=== PATIENT | female | born 1995 | race Caucasian/White ===

== ENCOUNTER 2022-05-17 01:50 | Emergency (ER) | payer BC, OTHER ==
[2022-05-17] MEDS ORDERED: Ondansetron ODT 4 MG TAB ONE (02:06)
[2022-05-17 02:32] LABS: Hemoglobin 13.2 g/dL (12.0-16.0); Mean Corpuscular Hemoglobin 32.2 pg (27.0-31.0); Mean Corpuscular Volume 97.8 fL (78.0-98.0); Mean Platelet Volume 6.4 fL (7.4-10.4); Platelet Count 306 thou/uL (130-400); RBC Distribution Width 11.1 % (11.5-14.5); Red Blood Cell (RBC) Count 4.09 mill/uL (4.20-5.40); White Blood Cell (WBC) Count 9.1 thou/uL (4.8-10.8)
[2022-05-17 02:44] LABS: ALT (SGPT) 14 U/L (8-55); AST (SGOT) 11 U/L (5-34); Albumin 3.8 g/dL (3.5-5.0); Alkaline Phosphatase 72 U/L (40-110); Anion Gap 15 mmol/L (10-20); BUN (Urea Nitrogen) 8 mg/dL (7.0-18.7); Bilirubin, Total 0.6 mg/dL (0.2-1.2); Calc. Creatinine Clearance 0 mL/min (70-130); Calcium 8.9 mg/dL (7.8-10.44); Carbon Dioxide 20 mmol/L (22-29); Chloride 108 mmol/L (98-107); Estimated GFR 78; Globulin 3.7 g/dL (2.4-3.5); Glucose 88 mg/dL (70-105); Potassium 3.7 mmol/L (3.5-5.1); Protein, Total 7.5 g/dL (6.0-8.3); Sodium 139 mmol/L (136-145)
[2022-05-17] MEDS ORDERED: Lidocaine Viscous Sol 2% 15 ml UD Cup ONE (02:44)
[2022-05-17] MEDS ORDERED: Mag-Al 1200 mg/1200 mg/30 ML UDCUP ONE (02:44)
[2022-05-17 02:53] LABS: Lymphocytes 59 % (21-51); MDiff Complete? YES; Monocytes 4 % (0-10); Neutrophil 36 % (42-75); Platelet Morphology Comment Appears Adequate; RBC Morphology Normal
[2022-05-17 03:09] LABS: Pregnancy Test - Urine (BHCG) Negative (Negative); Pregu Control Background? CLEAR/WHITE (CLR/WHITE); Pregu Control Bar Appear? YES (CONTROL BAR)
[2022-05-17 03:10] LABS: Specific Gravity 1.038 (1.002-1.036)
[2022-05-17 03:11] LABS: Bacteria/HPF None Seen HPF (None Seen); Bilirubin Negative (Negative); Blood, Urine Trace (Negative); Clarity Clear (Clear); Glucose, Urine (Dipstick) Normal (Negative); Ketone, Urine Negative (Negative); Leukocyte 25 Leu/uL (Negative); Mucous/LPF Rare LPF (<2+); Nitrite Negative (Negative); Protein, Urine (Dipstick) 30 mg/dL (Neg-Trace); Specific Gravity, Urine 1.038 (1.002-1.036); WBC/HPF 0-3 HPF (0-3); pH, Urine 5.5 (5.0-9.0)
== END 2022-05-17 03:56 | disposition home or self-care (01) ==
LOC: ERS 01:50
DX: R10.13 Epigastric pain (principal); K21.9 Gastro-esophageal reflux disease without esophagitis; F17.200 Nicotine dependence, unspecified, uncomplicated
CPT/HCPCS: 36415; 80053; 81003; 81015; 81025; 85025; 99284; Q0162

== ENCOUNTER 2023-10-06 14:46 | Emergency (ER) | payer OTHER, SELFPAY ==
[2023-10-06] MEDS ORDERED: Ketorolac Tromethamine 30 MG/ML VIAL ONE (16:11)
== END 2023-10-06 16:35 | disposition home or self-care (01) ==
LOC: ERS 14:46
DX: M25.532 Pain in left wrist (principal); F17.290 Nicotine dependence, other tobacco product, uncomplicated
CPT/HCPCS: 96372; J1885